=== PATIENT | male | born 1975 | race American Indian/Alaskan Native ===

== ENCOUNTER 2017-01-31 23:32 | Emergency (ER) | payer MEDICAID, OTHER ==
[2017-01-31 23:40] VITALS: BP 142/96
[2017-01-31] MEDS ORDERED: Iopamidol 612 MG/ML 100 ML Bottle IVPUSH ONE (23:56)
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
[2017-02-01 00:52] LABS: CHLORIDE,CL 102 mmol/L (101-111); SODIUM,NA 134 mmol/L (135-145)
== END 2017-02-01 01:31 ==
LOC: DL.ED 23:32
DX: S39.011A Strain of muscle, fascia and tendon of abdomen, initial encounter (principal); F17.210 Nicotine dependence, cigarettes, uncomplicated; Z88.5 Allergy status to narcotic agent; Z88.1 Allergy status to other antibiotic agents; Z91.018 Allergy to other foods; W19.XXXA Unspecified fall, initial encounter
CPT/HCPCS: 36415; 74177; 80053; 80305; 81001; 82150; 83690; 85025; 99284; Q9967

== ENCOUNTER 2017-02-13 17:15 | Emergency (ER) | payer MEDICAID, OTHER ==
[~2017-02-13 17:15] MED LIST: Acetaminophen/HYDROcodone 325-10 MG Tab PO ONE
[2017-02-13 17:21] VITALS: BP 161/99
[2017-02-13] MEDS ORDERED: Morphine 4 MG/ML Syringe IVPUSH ONE (17:49)
[2017-02-13] MEDS ORDERED: HYDROmorphone 1 MG/ML Syringe IVPUSH ONE ×2 (17:49→18:17)
--- NOTE | 2017-02-13 18:01 | EDM.PDOC ---
ED HPI GENERAL MEDICAL PROBLEM - General Chief Complaint: Upper Extremity Injury/Pain Stated Complaint: POSS BROKEN ARM, [place] [employer] Time Seen by Provider: 02/13/17 17:45 Source of Information: Reports: Patient History Limitations: Reports: No Limitations - History of Present Illness INITIAL COMMENTS - FREE TEXT/NARRATIVE: This 41 yo male patient was brought to the ED by [employer] due to pain in his right forearm. The patient reports [facility] was [facility] and fell off a broken upper bunk. The patient reports pain in his left arm and left hip. Onset: Today Duration: Minutes:, Constant, Getting Worse Location: Reports: Upper Extremity, Left Quality: Reports: Ache, Sharp Severity: Moderate Improves with: Reports: None Worsens with: Reports: None Context: Reports: Other Associated Symptoms: Reports: No Other Symptoms Left Lower Arm Pain Score (Numeric/FACES): 8 - Related Data Allergies Allergy/AdvReac Type Severity Reaction Status Date / Time cephalexin [Cephalexin] Allergy Rash Verified 02/13/17 17:37 morphine Allergy Anxiety Verified 02/13/17 17:37 strawberry Allergy Hives Verified 02/13/17 17:37 tramadol Allergy Itching Verified 02/13/17 17:37 Home Meds: Home Meds Ibuprofen [Motrin] 600 mg PO Q6H PRN 08/13/13 [History] Gabapentin [Neurontin] 600 mg PO TID 01/31/17 [History] Past Medical History Musculoskeletal History: Reports: Fracture - Infectious Disease History Infectious Disease History: Reports: None - Past Surgical History GI Surgical History: Reports: Hernia Repair/Other Social & Family History - Tobacco Use Smoking Status *Q: Current Every Day Smoker Years of Tobacco use: 12 Packs/Tins Daily: 0.1 Second Hand Smoke Exposure: Yes - Alcohol Use Days Per Week of Alcohol Use: 0 - Recreational Drug Use Recreational Drug Use: No Drug Use in Last 12 Months: Yes Recreational Drug Type: Reports: Marijuana/Hashish Review of Systems - Review of Systems Review Of Systems: ROS reveals no pertinent complaints other than HPI. ED EXAM, GENERAL - Physical Exam Exam: See Below Exam Limited By: No Limitations General Appearance: Alert, WD/WN, Moderate Distress Eye Exam: Bilateral Eye: EOMI, Normal Inspection, PERRL Ears: Normal External Exam, Normal Canal, Hearing Grossly Normal, Normal TMs Nose: Normal Inspection, Normal Mucosa, No Blood Throat/Mouth: Normal Inspection, Normal Lips, Normal Teeth, Normal Gums, Normal Oropharynx, Normal Voice, No Airway Compromise Head: Atraumatic, Normocephalic Neck: Normal Inspection, Supple, Non-Tender, Full Range of Motion Respiratory/Chest: No Respiratory Distress, Lungs Clear, Normal Breath Sounds, No Accessory Muscle Use, Chest Non-Tender Cardiovascular: Normal Peripheral Pulses, Regular Rate, Rhythm, No Edema, No Gallop, No JVD, No Murmur, No Rub GI/Abdominal: Normal Bowel Sounds, Soft, Non-Tender, No Organomegaly, No Distention, No Abnormal Bruit, No Mass (Male) Exam: Deferred Rectal (Males) Exam: Deferred Back Exam: Normal Inspection, Full Range of Motion, NT Extremities: Normal Capillary Refill, Arm Pain (left forearm) Neurological: Alert, Oriented, CN II-XII Intact, Normal Cognition, Normal Gait, Normal Reflexes, No Motor/Sensory Deficits Psychiatric: Normal Affect, Normal Mood Skin Exam: Warm, Dry, Intact, Normal Color, No Rash Lymphatic: No Adenopathy Course - Vital Signs Last Recorded V/S: Last Vital Signs Temp 36.3 C 02/13/17 17:20 Pulse 82 02/13/17 17:20 Resp 18 02/13/17 17:20 BP 161/99 H 02/13/17 17:20 Pulse Ox 98 02/13/17 17:20 - Orders/Labs/Meds Orders: Active Orders 24 hr Category Date Time Status Forearm 2V Lt [CR] Urgent Exams 02/13/17 17:33 Ordered Forearm 2V Lt [CR] Urgent Exams 02/13/17 18:32 Ordered Wrist Comp Min 3V Lt [CR] Urgent Exams 02/13/17 17:33 Ordered Meds: Medications Discontinued Medications Generic Name Dose Route Start Last Admin Trade Name Freq PRN Reason Stop Dose Admin Hydromorphone HCl 1 mg 02/13/17 17:49 02/13/17 17:55 Dilaudid IVPUSH 02/13/17 17:50 1 mg ONETIME ONE Administration Hydromorphone HCl 1 mg 02/13/17 18:17 02/13/17 18:20 Dilaudid IVPUSH 02/13/17 18:18 1 mg ONETIME ONE Administration Morphine Sulfate 4 mg 02/13/17 17:49 Morphine IVPUSH 02/13/17 17:50 ONETIME ONE Departure - Departure Time of Disposition: 18:56 Disposition: Home, Self-Care 01 Condition: Fair Clinical Impression: Closed fracture of radius Qualifiers: Encounter type: initial encounter Radius location: shaft Fracture morphology: oblique Fracture alignment: displaced Laterality: left Qualified Code(s): S52.332A - Displaced oblique fracture of shaft of left radius, initial encounter for closed fracture - Discharge Information Instructions: Radial Fracture Forms: ED Department Discharge Care Plan Goals: The patient was advised of the examination and x-ray result during the visit. The patient was placed in a splint to reduce movement of the fracture. Due to the amount of swelling, the patient was advised to rest, ice and elevate the extremity. The patient should follow-up with an insurance marketing specialist by the end of this week or the beginning of next week for continued evaluation and management. The patient was given Dilaudid while in the ED. The patient was discharged with [place] (10/325) #2 to take 1 by mouth every 6 hours and a script for [place] (10/325) #12 to take 1 by mouth every 6 hours as needed for pain. If the patient has any additional symptoms or concerns, the patient should follow- up with an insurance marketing specialist for continued evaluation and management. - My Orders Last 24 Hours: My Active Orders 02/13/17 17:33 Forearm 2V Lt [CR] Urgent Wrist Comp Min 3V Lt [CR] Urgent 02/13/17 18:32 Forearm 2V Lt [CR] Urgent - Assessment/Plan Last 24 Hours: My Active Orders 02/13/17 17:33 Forearm 2V Lt [CR] Urgent Wrist Comp Min 3V Lt [CR] Urgent 02/13/17 18:32 Forearm 2V Lt [CR] Urgent
[2017-02-13] MEDS ORDERED: Acetaminophen/HYDROcodone 325-10 MG Tab ONE (19:02)
[2017-02-13] MEDS ORDERED: Ondansetron 4 MG/2 ML SDV IV ONE (19:10)
== END 2017-02-13 19:19 | disposition home or self-care (01) ==
LOC: DL.ED 17:15
DX: S52.332A Displaced oblique fracture of shaft of left radius, initial encounter for closed fracture (principal); Z88.5 Allergy status to narcotic agent; Z88.1 Allergy status to other antibiotic agents; Z88.8 Allergy status to other drugs, medicaments and biological substances; F17.210 Nicotine dependence, cigarettes, uncomplicated; W19.XXXA Unspecified fall, initial encounter
CPT/HCPCS: 73090; 96374; 96375; 99283; A9270; J1170; J2405

== ENCOUNTER 2017-03-17 21:10 | Emergency (ER) | payer MEDICAID, OTHER ==
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
[2017-03-17 21:24] VITALS: BP 107/56
[2017-03-17] MEDS ORDERED: Ibuprofen 600 MG Tab PO ONE (21:45)
== END 2017-03-17 22:48 ==
LOC: DL.ED 21:10
DX: G89.18 Other acute postprocedural pain (principal); M79.602 Pain in left arm; F17.210 Nicotine dependence, cigarettes, uncomplicated; Z88.5 Allergy status to narcotic agent; Z88.1 Allergy status to other antibiotic agents; Z91.018 Allergy to other foods; Z88.6 Allergy status to analgesic agent
CPT/HCPCS: 73090; 99283; A9270

== ENCOUNTER 2018-01-20 16:41 | Emergency (ER) | payer MEDICAID, OTHER ==
[2018-01-20 17:48] VITALS: BP 166/97
--- NOTE | 2018-01-20 17:58 | EDM.PDOC ---
ED HPI GENERAL MEDICAL PROBLEM - General Chief Complaint: Lower Extremity Injury/Pain Stated Complaint: [facility] STATES BLOOD CLOT IN RT LEG Time Seen by Provider: 01/20/18 17:45 Source of Information: Reports: Patient, RN, RN Notes Reviewed History Limitations: Reports: No Limitations - History of Present Illness INITIAL COMMENTS - FREE TEXT/NARRATIVE: Patient presents to ER with complaint of right leg pain. Patient states he was bucked off a horse on 01/10/18. X-rays on 01/13/18 showed fibula head step off fracture.Today patient complains of continued pain and states pain meds are not working. His pain is rated at a 6/10. No re-injury. He took gabapentin and hydrocodone last today. Onset: Gradual Duration: Getting Worse Location: Reports: Lower Extremity, Right Quality: Reports: Ache Severity: Severe Improves with: Reports: None Worsens with: Reports: None Associated Symptoms: Reports: No Other Symptoms Right Leg Pain Score (Numeric/FACES): 8 - Related Data Allergies Allergy/AdvReac Type Severity Reaction Status Date / Time cephalexin [Cephalexin] Allergy Rash Verified 01/20/18 17:48 morphine Allergy Anxiety Verified 01/20/18 17:48 strawberry Allergy Hives Verified 01/20/18 17:48 tramadol Allergy Itching Verified 01/20/18 17:48 Home Meds: Home Meds Ibuprofen [Motrin] 600 mg PO Q6H PRN 08/13/13 [History] Past Medical History - Past Health History Medical/Surgical History: Denies Medical/Surgical History Musculoskeletal History: Reports: Fracture - Infectious Disease History Infectious Disease History: Reports: None - Past Surgical History GI Surgical History: Reports: Hernia Repair/Other Social & Family History - Tobacco Use Smoking Status *Q: Light Tobacco Smoker Years of Tobacco use: 5 Packs/Tins Daily: 0.1 - Caffeine Use Caffeine Use: Reports: Coffee - Recreational Drug Use Recreational Drug Use: No Review of Systems - Review of Systems Review Of Systems: ROS reveals no pertinent complaints other than HPI. ED EXAM, GENERAL - Physical Exam Exam: See Below Exam Limited By: No Limitations General Appearance: Alert, WD/WN, No Apparent Distress Eye Exam: Bilateral Eye: EOMI, Normal Inspection Ears: Normal External Exam, Normal Canal, Hearing Grossly Normal, Normal TMs Nose: Normal Inspection, Normal Mucosa, No Blood Throat/Mouth: Normal Inspection, Normal Lips, Normal Teeth, Normal Gums, Normal Oropharynx, Normal Voice, No Airway Compromise Head: Atraumatic, Normocephalic Neck: Normal Inspection, Supple, Non-Tender, Full Range of Motion Respiratory/Chest: No Respiratory Distress, Lungs Clear, Normal Breath Sounds, No Accessory Muscle Use, Chest Non-Tender Cardiovascular: Normal Peripheral Pulses, Regular Rate, Rhythm, No Edema, No Gallop, No JVD, No Murmur, No Rub GI/Abdominal: Normal Bowel Sounds, Soft, Non-Tender, No Organomegaly, No Distention, No Abnormal Bruit, No Mass (Male) Exam: Deferred Rectal (Males) Exam: Deferred Back Exam: Normal Inspection, Full Range of Motion, NT Extremities: Other (right lower leg lateral bruising and swelling) Neurological: Alert, Oriented, CN II-XII Intact, Normal Cognition, Normal Gait, Normal Reflexes, No Motor/Sensory Deficits Psychiatric: Normal Affect, Normal Mood Skin Exam: Warm, Dry, Intact, Normal Color, No Rash Course - Vital Signs Last Recorded V/S: Last Vital Signs Temp 99.1 F 01/20/18 17:00 Pulse 79 01/20/18 17:00 Resp 16 01/20/18 17:00 BP 166/97 H 01/20/18 17:00 Pulse Ox 98 01/20/18 17:00 - Radiology Interpretation Free Text/Narrative:: Right venous doppler/US: No acute findings See rad report Departure - Departure Time of Disposition: 18:42 Disposition: Home, Self-Care 01 Condition: Fair Clinical Impression: Fracture of fibula - Discharge Information Instructions: Cast or Splint Care, Adult, [id number], Pain Medicine Instructions, [id number] Forms: ED Department Discharge Additional Instructions: Follow up with your primary care facility RX: Tramadol, Diclofenac
--- NOTE | 2018-01-21 08:14 | US ---
CLINICAL HISTORY: 42-year-old male with reportedly elevated "serum D dimer" ([facility]) and painful right knee (possible nondisplaced fibular fracture associated with fall off of horse). Rule out DVT. INTERPRETATION: Negative exam. No sign of intraluminal echogenic thrombus and normal compressibility deep veins right groin, thigh, knee and calf. No Vásquez's cyst identified in the popliteal fossa behind the right knee. No hematoma in the calf. Satisfactory augmentation venous waveforms demonstrated in the posterior tibial vein of the right meli f, popliteal vein behind the knee and proximally in the femoral veins of the right thigh. CONCLUSION: No sonographic evidence DVT right lower extremity.
== END 2018-01-20 18:50 | disposition home or self-care (01) ==
LOC: DL.ED 16:41
DX: S82.401A Unspecified fracture of shaft of right fibula, initial encounter for closed fracture (principal); F17.210 Nicotine dependence, cigarettes, uncomplicated; Z88.1 Allergy status to other antibiotic agents; Z88.5 Allergy status to narcotic agent; Z91.018 Allergy to other foods; W55.12XA Struck by horse, initial encounter
CPT/HCPCS: 93971; 99283

== ENCOUNTER 2018-02-24 12:32 | Emergency (ER) | payer MEDICAID, OTHER ==
[2018-02-24 12:43] VITALS: BP 135/94
--- NOTE | 2018-02-24 12:55 | EDM.PDOC ---
ED HPI GENERAL MEDICAL PROBLEM - General Chief Complaint: Lower Extremity Injury/Pain Stated Complaint: [id number] FRACTURED FIBULA MONTH AGO PAIN Time Seen by Provider: 02/24/18 12:45 Source of Information: Reports: Patient History Limitations: Reports: No Limitations - History of Present Illness INITIAL COMMENTS - FREE TEXT/NARRATIVE: This 42 yo male patient reports to the ED with right lateral leg and knee pain. The patient reports that he had a fractured fibula about 1 month ago. The patient removed his brace this past week and has noticed increased pain. The patient reports that he does have a follow-up with ortho on March 19. The patient reports that he is out of pain medications, and was told to take ibuprofen or Tylenol. Onset: Today Duration: Constant, Getting Worse Location: Reports: Lower Extremity, Right Quality: Reports: Ache, Dull Severity: Moderate Improves with: Reports: None Worsens with: Reports: None Associated Symptoms: Reports: No Other Symptoms Right Leg Pain Score (Numeric/FACES): 5 - Related Data Allergies Allergy/AdvReac Type Severity Reaction Status Date / Time cephalexin [Cephalexin] Allergy Rash Verified 02/24/18 12:41 morphine Allergy Anxiety Verified 02/24/18 12:41 strawberry Allergy Hives Verified 02/24/18 12:41 Home Meds: Home Meds Ibuprofen [Motrin] 600 mg PO Q6H PRN 08/13/13 [History] Past Medical History - Past Health History Medical/Surgical History: Denies Medical/Surgical History Musculoskeletal History: Reports: Fracture - Infectious Disease History Infectious Disease History: Reports: None - Past Surgical History GI Surgical History: Reports: Hernia Repair/Other Social & Family History - Tobacco Use Smoking Status *Q: Current Some Day Smoker Years of Tobacco use: 10 Packs/Tins Daily: 0.1 - Caffeine Use Caffeine Use: Reports: None - Recreational Drug Use Recreational Drug Use: No Review of Systems - Review of Systems Review Of Systems: ROS reveals no pertinent complaints other than HPI. ED EXAM, GENERAL - Physical Exam Exam: See Below Exam Limited By: No Limitations General Appearance: Alert, WD/WN, Moderate Distress Eye Exam: Bilateral Eye: EOMI, Normal Inspection, PERRL Ears: Normal External Exam, Normal Canal, Hearing Grossly Normal, Normal TMs Nose: Normal Inspection, Normal Mucosa, No Blood Throat/Mouth: Normal Inspection, Normal Lips, Normal Teeth, Normal Gums, Normal Oropharynx, Normal Voice, No Airway Compromise Head: Atraumatic, Normocephalic Neck: Normal Inspection, Supple, Non-Tender, Full Range of Motion Respiratory/Chest: No Respiratory Distress, Lungs Clear, Normal Breath Sounds, No Accessory Muscle Use, Chest Non-Tender Cardiovascular: Normal Peripheral Pulses, Regular Rate, Rhythm, No Edema, No Gallop, No JVD, No Murmur, No Rub GI/Abdominal: Normal Bowel Sounds, Soft, Non-Tender, No Organomegaly, No Distention, No Abnormal Bruit, No Mass (Male) Exam: Deferred Rectal (Males) Exam: Deferred Back Exam: Normal Inspection, Full Range of Motion, NT Extremities: Leg Pain (Right proximal lateral lower leg and knee) Neurological: Alert, Oriented, CN II-XII Intact, Normal Cognition, Normal Gait, Normal Reflexes, No Motor/Sensory Deficits Psychiatric: Normal Affect, Normal Mood Skin Exam: Warm, Dry, Intact, Normal Color, No Rash Lymphatic: No Adenopathy Course - Vital Signs Last Recorded V/S: Last Vital Signs Temp 37.4 C 02/24/18 12:42 Pulse 79 02/24/18 12:42 Resp 18 02/24/18 12:42 BP 135/94 H 02/24/18 12:42 Pulse Ox 96 02/24/18 12:42 Departure - Departure Time of Disposition: 14:25 Disposition: Home, Self-Care 01 Condition: Fair Clinical Impression: Sprain of lateral collateral ligament of right knee Qualifiers: Encounter type: subsequent encounter Qualified Code(s): S83.421D - Sprain of lateral collateral ligament of right knee, subsequent encounter - Discharge Information Instructions: Knee Sprain, Adult, [id number] Forms: ED Department Discharge Care Plan Goals: The patient was advised of the examination and x-ray results during the visit. The patient was encouraged to continue to wear his knee immobilizer and use his crutches. The patient should follow-up with his primary care facility for further evaluation (MRI) and management. If the patient has any additional symptoms or concerns, the patient should either visit his primary care facility or return to the emergency department.
== END 2018-02-24 14:37 | disposition home or self-care (01) ==
LOC: DL.ED 12:32
DX: S83.421D Sprain of lateral collateral ligament of right knee, subsequent encounter (principal); F17.210 Nicotine dependence, cigarettes, uncomplicated; Z88.1 Allergy status to other antibiotic agents; Z88.5 Allergy status to narcotic agent; Z91.018 Allergy to other foods; X58.XXXD Exposure to other specified factors, subsequent encounter
CPT/HCPCS: 73590-RT; 99283

== ENCOUNTER 2019-10-12 16:33 | Emergency (ER) | payer MEDICAID, OTHER ==
[2019-10-12 16:47] VITALS: BP 130/90; PULSE 108
[2019-10-12] MEDS ORDERED: Sodium Chloride 0.9% 1,000 ML IV ONE (17:04)
[2019-10-12] MEDS ORDERED: Ondansetron 4 MG/2 ML SDV IV ONE (17:04)
[2019-10-12] MEDS ORDERED: Sodium Chloride 0.9% 10 ML Syringe FLUSH PRN (17:04)
[2019-10-12] MEDS ORDERED: Ketorolac 30 MG/ML SDV IVPUSH ONE (17:04)
[2019-10-12] MEDS ORDERED: HYDROmorphone 1 MG/ML Syringe IVPUSH ONE ×2 (17:06→17:36)
--- NOTE | 2019-10-12 17:31 | EDM.PDOC ---
<Tanvir Joe - Last Filed: 10/12/19 18:43> ED HPI GENERAL MEDICAL PROBLEM - General Chief Complaint: Genitourinary Problem Stated Complaint: BLOOD IN URINE, HURTING SWOLLEN TESTICLE Time Seen by Provider: 10/12/19 17:00 Source of Information: Reports: Patient, Old Records, RN, RN Notes Reviewed History Limitations: Reports: No Limitations - History of Present Illness INITIAL COMMENTS - FREE TEXT/NARRATIVE: Pt presents to ER with c/o onset of pain and swelling of the right testicle that was noted when he woke up yesterday morning. He thought it would get better , but it has worsened. He is unable to bear weight on the right peg due to pain in scrotum, and he now has bilateral flank, lower back and abdominal pain. He has also had blood clots in urine the last 4 voids. He has never had any urinary issues before he states. He denies any open sores or wounds to testicles. States he has had fever and chills. Denies STD risk. Onset: Gradual Onset Date: 10/11/19 Duration: Constant Location: Reports: Abdomen, Back, Pelvis, Other (Testicle) Quality: Reports: Ache Severity: Severe Improves with: Reports: None Worsens with: Reports: Movement Associated Symptoms: Reports: No Other Symptoms Right Scrotum Pain Score (Numeric/FACES): 8 - Related Data Allergies Allergy/AdvReac Type Severity Reaction Status Date / Time cephalexin [Cephalexin] Allergy Rash Verified 10/12/19 16:44 morphine Allergy Anxiety Verified 10/12/19 16:44 strawberry Allergy Hives Verified 10/12/19 16:44 Home Meds: Home Meds Gabapentin [Neurontin] 300 mg PO TID 10/12/19 [History] Past Medical History - Past Health History Medical/Surgical History: Denies Medical/Surgical History Musculoskeletal History: Reports: Fracture, Neck Pain, Chronic Psychiatric History: Reports: Addiction - Infectious Disease History Infectious Disease History: Reports: None - Past Surgical History GI Surgical History: Reports: Hernia Repair/Other Social & Family History - Family History Family Medical History: Unobtainable - Tobacco Use Smoking Status *Q: Current Every Day Smoker Years of Tobacco use: 20 Packs/Tins Daily: 0.1 - Caffeine Use Caffeine Use: Reports: Other Caffeine Use Comment: unable to obtain - Alcohol Use Alcohol Use History: Yes Alcohol Use Frequency: Binges - Recreational Drug Use Recreational Drug Use: Yes Drug Use in Last 12 Months: Yes Recreational Drug Type: Reports: Marijuana/Hashish, Methamphetamine - Living Situation & Occupation Living situation: Reports: with Family ED ROS GENERAL - Review of Systems Review Of Systems: Comprehensive ROS is negative, except as noted in HPI. ED EXAM, RENAL/ - Physical Exam Exam: See Below Exam Limited By: No Limitations General Appearance: Alert, WD/WN, Moderate Distress Throat/Mouth: Normal Inspection Head: Atraumatic, Normocephalic Neck: Normal Inspection Respiratory/Chest: No Respiratory Distress, Lungs Clear, Normal Breath Sounds, No Accessory Muscle Use, Chest Non-Tender Cardiovascular: Regular Rate, Rhythm, Tachycardia GI/Abdominal: Normal Bowel Sounds, Soft, No Distention, Pelvis Stable, Tender ( suprapubic.). No: Guarding, Rigid, Rebound (Male) Exam: Scrotal Swelling, Scrotum Tenderness (R), Testicular Tenderness (R). No: Penile Lesions, Rash, Urethral Discharge Rectal (Males) Exam: Deferred Back Exam: Full Range of Motion, CVA Tenderness (L). No: CVA Tenderness (R) Extremities: Normal Inspection, Normal Range of Motion, Normal Capillary Refill. No: Joint Swelling Neurological: Alert, Oriented, No Motor/Sensory Deficits Psychiatric: Normal Mood Skin Exam: Warm, Dry, Erythema (Rt scrotum), Increased Warmth (Rt scrotum) Course - Vital Signs Last Recorded V/S: Last Vital Signs Temp 37.7 C 10/12/19 16:44 Pulse 108 H 10/12/19 16:44 Resp 14 10/12/19 16:44 BP 130/90 10/12/19 16:44 Pulse Ox 99 10/12/19 16:44 - Orders/Labs/Meds Orders: Active Orders 24 hr Category Date Time Status Peripheral IV Care [RC] . DIRECTED Care 10/12/19 17:04 Active CHLAMYDIA AND GONORRHEA BY TMA Routine Lab 10/12/19 16:48 Received CULTURE BLOOD [BC] Stat Lab 10/12/19 17:05 Received CULTURE BLOOD [BC] Stat Lab 10/12/19 17:42 Received CULTURE URINE [RM] Stat Lab 10/12/19 16:48 Received Sodium Chloride 0.9% [Saline Flush] Med 10/12/19 17:04 Active 10 ml FLUSH ASDIRECTED PRN Blood Culture x2 Reflex Set [OM.PC] Stat Oth 10/12/19 17:04 Ordered Peripheral IV Insertion Adult [OM.PC] Stat Oth 10/12/19 17:04 Ordered Medication Orders Sodium Chloride (Saline Flush) 10 ml FLUSH ASDIRECTED PRN PRN Reason: Keep Vein Open Last Admin: 10/12/19 17:14 Dose: 10 ml Labs: Laboratory Tests 10/12/19 10/12/19 10/12/19 Range/Units 16:48 16:48 17:05 WBC 13.3 H (5.0-10.0) 10^3/uL RBC 4.87 (4.6-6.2) 10^6/uL Hgb 14.4 (14.0-18.0) g/dL Hct 42.5 (40.0-54.0) % MCV 87.3 (80-100) fL MCH 29.6 (27.0-34.0) pg MCHC 33.9 (33.0-35.0) g/dL Plt Count 249 (150-450) 10^3/uL Neut % (Auto) 75.3 H (42.2-75.2) % Lymph % (Auto) 16.3 L (20.5-50.1) % [place] % (Auto) 7.7 (2-8) % Eos % (Auto) 0.5 L (1.0-3.0) % Baso % (Auto) 0.2 (0.0-1.0) % Sodium (135-145) mmol/L Potassium (3.6-5.0) mmol/L Chloride (101-111) mmol/L Carbon Dioxide (21.0-31.0) mmol/L Anion Gap BUN (7-18) mg/dL Creatinine (0.6-1.3) mg/dL Est Cr Clr Drug Dosing mL/min Estimated GFR (MDRD) BUN/Creatinine Ratio Glucose (74-105) mg/dL Lactic Acid (0.5-2.0) mmol/L Calcium (8.4-10.2) mg/dl Total Bilirubin (0.2-1.0) mg/dL AST (10-42) IU/L ALT (10-60) IU/L Alkaline Phosphatase (42-121) IU/L C-Reactive Protein (0.0-1.3) mg/dL Total Protein (6.7-8.2) g/dl Albumin (3.2-5.5) g/dl Globulin Albumin/Globulin Ratio Urine Color Dark yellow (YELLOW) Urine Appearance Turbid (CLEAR) Urine pH 7.5 (5.0-9.0) Ur Specific [place] 1.025 (1.005-1.030) Urine Protein 100 H (NEGATIVE) Urine Glucose (UA) Negative (NEGATIVE) Urine Ketones 15 H (NEGATIVE) Urine Occult Blood Large H (NEGATIVE) Urine Nitrite Positive H (NEGATIVE) Urine Bilirubin Small H (NEGATIVE) Urine Urobilinogen 4.0 H (0.2-1.0) mg/dL Ur Leukocyte Esterase Small H (NEGATIVE) Urine RBC Semi-packed H /HPF Urine WBC 30-40 H (0-5/HPF) /HPF Ur Epithelial Cells Rare (NOT SEEN) /HPF Urine Bacteria Many H (0-FEW/HPF) /HPF Urine Mucus Moderate H (NOT SEEN) /LPF Urine Opiates Screen Negative (NEGATIVE) Ur Oxycodone Screen Negative (NEGATIVE) Urine Methadone Screen Negative (NEGATIVE) Ur Barbiturates Screen Negative (NEGATIVE) U Tricyclic Antidepress Negative (NEGATIVE) Ur Phencyclidine Scrn Negative (NEGATIVE) Ur Amphetamine Screen Positive H (NEGATIVE) U Methamphetamines Scrn Positive H (NEGATIVE) Urine MDMA Screen Negative (NEGATIVE) U Benzodiazepines Scrn Negative (NEGATIVE) Urine Cocaine Screen Negative (NEGATIVE) U Marijuana (THC) Screen Negative (NEGATIVE) Ethyl Alcohol mg/dL 10/12/19 10/12/19 10/12/19 Range/Units 17:05 17:05 17:05 WBC (5.0-10.0) 10^3/uL RBC (4.6-6.2) 10^6/uL Hgb (14.0-18.0) g/dL Hct (40.0-54.0) % MCV (80-100) fL MCH (27.0-34.0) pg MCHC (33.0-35.0) g/dL Plt Count (150-450) 10^3/uL Neut % (Auto) (42.2-75.2) % Lymph % (Auto) (20.5-50.1) % Cascade % (Auto) (2-8) % Eos % (Auto) (1.0-3.0) % Baso % (Auto) (0.0-1.0) % Sodium 129 L D (135-145) mmol/L Potassium 3.9 (3.6-5.0) mmol/L Chloride 97 L (101-111) mmol/L Carbon Dioxide 22.0 (21.0-31.0) mmol/L Anion Gap 13.9 BUN 9 (7-18) mg/dL Creatinine 0.6 (0.6-1.3) mg/dL Est Cr Clr Drug Dosing 146.89 mL/min Estimated GFR (MDRD) > 60 BUN/Creatinine Ratio 15.00 Glucose 102 (74-105) mg/dL Lactic Acid 0.8 (0.5-2.0) mmol/L Calcium 9.0 (8.4-10.2) mg/dl Total Bilirubin 1.2 H (0.2-1.0) mg/dL AST 40 (10-42) IU/L ALT 72 H (10-60) IU/L Alkaline Phosphatase 121 (42-121) IU/L C-Reactive Protein 8.7 H (0.0-1.3) mg/dL Total Protein 8.1 (6.7-8.2) g/dl Albumin 3.8 (3.2-5.5) g/dl Globulin 4.3 Albumin/Globulin Ratio 0.88 Urine Color (YELLOW) Urine Appearance (CLEAR) Urine pH (5.0-9.0) Ur Specific [place] (1.005-1.030) Urine Protein (NEGATIVE) Urine Glucose (UA) (NEGATIVE) Urine Ketones (NEGATIVE) Urine Occult Blood (NEGATIVE) Urine Nitrite (NEGATIVE) Urine Bilirubin (NEGATIVE) Urine Urobilinogen (0.2-1.0) mg/dL Ur Leukocyte Esterase (NEGATIVE) Urine RBC /HPF Urine WBC (0-5/HPF) /HPF Ur Epithelial Cells (NOT SEEN) /HPF Urine Bacteria (0-FEW/HPF) /HPF Urine Mucus (NOT SEEN) /LPF Urine Opiates Screen (NEGATIVE) Ur Oxycodone Screen (NEGATIVE) Urine Methadone Screen (NEGATIVE) Ur Barbiturates Screen (NEGATIVE) U Tricyclic Antidepress (NEGATIVE) Ur Phencyclidine Scrn (NEGATIVE) Ur Amphetamine Screen (NEGATIVE) U Methamphetamines Scrn (NEGATIVE) Urine MDMA Screen (NEGATIVE) U Benzodiazepines Scrn (NEGATIVE) Urine Cocaine Screen (NEGATIVE) U Marijuana (THC) Screen (NEGATIVE) Ethyl Alcohol < 5 mg/dL Meds: Medications Generic Name Dose Route Start Last Admin Trade Name Freq PRN Reason Stop Dose Admin Sodium Chloride 10 ml 10/12/19 17:04 10/12/19 17:14 Saline Flush FLUSH 10 ml ASDIRECTED PRN Administration Keep Vein Open Discontinued Medications Generic Name Dose Route Start Last Admin Trade Name Freq PRN Reason Stop Dose Admin Azithromycin 1,000 mg 10/12/19 17:38 10/12/19 17:56 Zithromax PO 10/12/19 17:39 1,000 mg ONETIME ONE Administration Diphenhydramine HCl 25 mg 10/12/19 17:40 10/12/19 17:57 Benadryl IVPUSH 10/12/19 17:41 25 mg ONETIME ONE Administration Hydromorphone HCl 1 mg 10/12/19 17:06 10/12/19 17:13 Dilaudid IVPUSH 10/12/19 17:07 1 mg ONETIME ONE Administration Hydromorphone HCl 1 mg 10/12/19 17:36 10/12/19 17:57 Dilaudid IVPUSH 10/12/19 17:37 1 mg ONETIME ONE Administration Sodium Chloride 1,000 mls @ 999 mls/hr 10/12/19 17:04 10/12/19 17:14 Normal Saline IV 10/12/19 18:04 999 mls/hr .BOLUS ONE Administration Ceftriaxone Sodium 1,000 mg/ 100 mls @ 200 mls/hr 10/12/19 17:40 10/12/19 17: 56 Sodium Chloride IV 10/12/19 18:09 200 mls/hr ONETIME ONE Administration Levofloxacin/Dextrose 750 mg/ 150 mls @ 100 mls/hr 10/12/19 18:22 10/12/19 19 :06 Premix IV 10/12/19 19:51 100 mls/hr ONETIME ONE Administration Ketorolac Tromethamine 30 mg 10/12/19 17:04 10/12/19 17:13 Toradol IVPUSH 10/12/19 17:05 30 mg ONETIME ONE Administration Methylprednisolone Sodium Succinate 125 mg 10/12/19 18:22 10/12/19 18:27 Solu-Medrol IVPUSH 10/12/19 18:23 125 mg ONETIME ONE Administration Ondansetron HCl 4 mg 10/12/19 17:04 10/12/19 17:13 Zofran IV 10/12/19 17:05 4 mg ONETIME ONE Administration - Re-Assessments/Exams Free Text/Narrative Re-Assessment/Exam: 10/12/19 18:43 Pt had redness and itching shortly after Rocephin IV was began. The Rocephin was d/c'd and pt received Solu-Medrol 125mg IVP with resolution of redness and itching. Care of pt transferred to [facility] at 1900HR shift change with scrotal/ testicular US pending. Departure - Departure Disposition: Home, Self-Care 01 Clinical Impression: Epididymitis - Discharge Information Instructions: Epididymitis Forms: ED Department Discharge Care Plan Goals: The patient was advised of the examination, lab and ultrasound results during the visit. The patient was given an oral dose of Azithromycin, a partial dose of Rocephin and an IV dose of Levaquin during the visit. The patient was discharged with a script for Levaquin (500 mg) #14 to take 1 by mouth daily for 14 days. The patient was encouraged to wear supportive clothing. If the patient has any additional symptoms or concerns, the patient should either follow-up with his primary care facility or return to the emergency department. Sepsis Event Note - Evaluation Sepsis Screening Result: No Definite Risk - Focused Exam Vital Signs: Vital Signs Temp Pulse Resp BP Pulse Ox 10/12/19 16:44 37.7 C 108 H 14 130/90 99 Date Exam was Performed: 10/12/19 Time Exam was Performed: 18:43 <[facility] Mratinez M - Last Filed: 10/12/19 20:32> Departure - Departure Time of Disposition: 20:32 Condition: Fair - Discharge Information *PRESCRIPTION DRUG MONITORING PROGRAM REVIEWED*: Not Applicable *COPY OF PRESCRIPTION DRUG MONITORING REPORT IN PATIENT MARY: Not Applicable Sepsis Event Note - Focused Exam Date Exam was Performed: 10/12/19 Time Exam was Performed: 20:32
[2019-10-12] MEDS ORDERED: Azithromycin 250 MG Tab PO ONE (17:38)
[2019-10-12] MEDS ORDERED: diphenhydrAMINE 50 MG/ML SDV IVPUSH ONE (17:40)
[2019-10-12 17:48] LABS: ANION GAP 13.9; CHLORIDE,CL 97 mmol/L (101-111); SODIUM,NA 129 mmol/L (135-145)
[2019-10-12] MEDS ORDERED: Levofloxacin/Dextrose 5%-Water 750 MG in Premix Bag 1 BAG IV ONE (18:22)
[2019-10-12] MEDS ORDERED: methylPREDNISolone Sodium Succinate 125 MG/2 ML SDV IVPUSH ONE (18:22)
== END 2019-10-12 20:39 | disposition home or self-care (01) ==
LOC: DL.ED 16:33
DX: N45.1 Epididymitis (principal); F17.210 Nicotine dependence, cigarettes, uncomplicated; Z91.018 Allergy to other foods; Z88.1 Allergy status to other antibiotic agents; Z88.5 Allergy status to narcotic agent
CPT/HCPCS: 36415; 76870; 80053; 80305; 80307; 81001; 83605; 85025; 86140; 87040; 87086; 87088; 87186; 87491; 87591; 93975; 96361; 96365; 96367; 96375; 96376; 99284; A9270; J0696; J1170; J1200; J1885; J1956; J2405; J2930; J7030; J7050

== ENCOUNTER 2023-09-28 15:26 | Emergency (ER) | payer MEDICAID, OTHER | END 2023-09-28 18:42 | disposition left against medical advice (07) | LOC: DL.ED 15:26 | DX: Z53.21 Procedure and treatment not carried out due to patient leaving prior to being seen by health care provider (principal) ==

== ENCOUNTER 2024-08-10 10:33 | Emergency (ER) | payer OTHER ==
[2024-08-10] MEDS ORDERED: Aspirin 325 MG Tab PO ONE (10:39)
[2024-08-10 10:49] LABS: BASOPHILS PERCENT AUTO 1.2 % (0.0-1.0); EOSINOPHILS PERCENT AUTO 1.2 % (1.0-3.0); HEMATOCRIT 41.9 % (40.0-54.0); LYMPHOCYTES PERCENT AUTO 28.2 % (20.5-50.1); MEAN CORPUSCULAR HEMOGLOBIN 31.3 pg (27.0-34.0); MEAN CORPUSCULAR HGB CONC 33.4 g/dL (33.0-35.0); MEAN CORPUSCULAR VOLUME 93.7 fL (80-100); MONOCYTES PERCENT AUTO 14.7 % (2-8); NEUTROPHILS PERCENT AUTO 54.7 % (42.2-75.2); PLATELET COUNT,PLT 104 10^3/uL (150-450); RED BLOOD CELL COUNT 4.47 10^6/uL (4.6-6.2); WHITE BLOOD CELL COUNT,WBC 5.9 10^3/uL (5.0-10.0)
[2024-08-10] MEDS: Azithromycin 500 MG in Sodium Chloride 0.9% 250 ML IV ONE (10:50)
[2024-08-10] MEDS: Aspirin 81 MG Tab.Chew PO ONE (10:50)
[2024-08-10] MEDS: Lactated Ringers 1,000 ML IV SCH (10:50)
[2024-08-10] MEDS: cefTRIAXone 1 GM Vial IVPUSH ONE (10:50)
[2024-08-10] MEDS: Sodium Chloride 0.9% 10 ML Syringe FLUSH PRN (11:03)
[2024-08-10 11:10] LABS: INR 1.7 (0.9-1.2); PTT,PARTIAL THROMBOPLSTIN TIME 29.6 SEC (22.0-34.0)
[2024-08-10 11:13] LABS: A/G RATIO 0.94; ALANINE AMINOTRANSFERASE,ALT 30 U/L (16-63); ALBUMIN 3.3 g/dL (3.4-5.0); ALKALINE PHOSPHATASE 162 U/L (46-116); ASPARTATE AMNIOTRANSFERASE,AST 41 U/L (15-37); BILIRUBIN TOTAL 2.2 mg/dL (0.2-1.0); BLOOD UREA NITROGEN,BUN 26 mg/dL (7-18); BUN/CREATININE RATIO 24.1 (No establ ref range); CARBON DIOXIDE,CO2 24 mmol/L (21-32); CHLORIDE,CL 106 mmol/L (98-107); CREATININE 1.08 mg/dL (0.70-1.30); ESTIMATED GFR 84 mL/min (>=60); GLUCOSE RANDOM 88 mg/dL (70-99); LACTIC ACID 1.9 mmol/L (0.4-2.0); PROTEIN TOTAL,TP 6.8 g/dL (6.4-8.2); SODIUM,NA 141 mmol/L (136-145)
[2024-08-10 11:15] LABS: B-TYPE NATRIURETIC PEPTIDE,BNP 402 pg/ml (0-100)
[2024-08-10] MEDS: Iopamidol 755 Mg/ML 100 ML Bottle IVPUSH ONE (12:48)
[2024-08-10 14:31] VITALS: BP 111/89; PULSE 93
== END 2024-08-10 14:05 ==
LOC: DL.ED 10:33
DX: I11.0 Hypertensive heart disease with heart failure (principal); I50.9 Heart failure, unspecified; Z79.899 Other long term (current) drug therapy; Z88.1 Allergy status to other antibiotic agents; Z88.5 Allergy status to narcotic agent; Z91.018 Allergy to other foods
CPT/HCPCS: 36415; 71045; 71275; 74177; 80053; 83605; 83880; 84145; 84484; 85025; 85610; 85730; 87040; 93010; 96365; 96375; 99285; 99291; A9270; J0456; J0696; J7050; J7120; Q9967